=== PATIENT | female | born 1960 | race Caucasian/White ===

== ENCOUNTER 2021-01-09 13:30 | Emergency (ER) | payer MEDICARE, OTHER ==
--- OUTSIDE RECORDS SUMMARY | 2021-01-09 13:35 | XMS REPORT | Continuity of Care Document ---
:1960 Author Organization [facility] t Address [address] [place] [address] Care Team Providers Name Role Phone Unavailable Unavailable Unavailable Problems Condition Condition Condition Status Onset Resolution Last Treating Co mments Source Name Details Category Date Date Treatment Clinician Date Neuropathy Neuropathy [facility] Ecchymosis Ecchymosis Problem [facility] Urinary Urinary Problem Active [place] tract Tract da infectious Infectious [facility] disease Disease [facility] Chronic Chronic Problem Active [place] low back Low Back da pain Pain [facility] Sciatica Sciatica Problem [facility] [place] [facility] Shoulder Shoulder Problem Active [facility] tendinitis Tendinitis [facility] Pain in Pain in Problem Active [place] upper limb Upper Limb [facility] Pain in Pain in Problem Active [place] left lower Left Lower da limb Limb [facility] Costal Costal Problem Active [facility] chondritis Chondritis [facility] Chest pain Chest Pain Problem [facility] Fracture Fracture Problem Active [place] of foot of Foot [facility] Closed Closed Problem Active [place] traumatic Traumatic da dislocatio Dislocatio [facility] n of n of al tarsometat Tarsometat He alth arsal arsal Outreac joint Joint h Program Strain of Strain of Problem Active [place] tendon of Tendon of da foot and Foot and [facility] ankle Ankle al [facility] Allergies, Adverse Reactions, Alerts Allergy Allergy Status Severity Reaction(s) Onset Inactive Treating Comm ents Source Name Type Date Date Clinician PENICILL Allergy Active Moderate Other [place] INS to to severe da substanc Medical e Group Social History Smoking Status Start Date Stop Date Source Heavy Tobacco Smoker [facility] Light Tobacco Smoker [facility] Medications Ordered Filled Start Stop Current Ordering Indication Dosage Frequency Signature Comments Components Source Medication Medication Date Date Medication? Clinician (SIG) Name Name hydroco/apa hydroco/apa No hydroco/ap [place] tab p tab ap tab da 10-325mg 3 10-325mg 3 10-325mg 3 Medical times a day times a day times a Group day diclofenac diclofenac No diclofenac [place] sodium 1 % sodium 1 % sodium 1 da gel gel % gel [facility] hydrocodone hydrocodone No hydrocodon [place] 10 10 e 10 da mg-acetamin mg-acetamin mg-acetami [facility] ophen 325 ophen 325 nophen 325 al mg tablet mg tablet mg tablet Health TAKE ONE TAKE ONE TAKE ONE Out reac (1) (1) (1) h TABLET(S) TABLET(S) TABLET(S) Program BY MOUTH BY MOUTH BY MOUTH THREE TIMES THREE TIMES THREE A DAY. A DAY. TIMES A DAY. methocarbam methocarbam No methocarba [place] 750 mg ol 750 mg mol 750 mg da tablet TAKE tablet TAKE tablet [facility] ONE (1) ONE (1) TAKE ONE al TABLET(S) TABLET(S) (1) Healt h BY MOUTH BY MOUTH TABLET(S) Ou treac THREE TIMES THREE TIMES BY MOUTH h A DAY. A DAY. THREE Program TIMES A DAY. methocarbam methocarbam No methocarba [place] 750 mg ol 750 mg mol 750 da tabs 3 tabs 3 mg tabs 3 Medica l times a day times a day times a Group day Vital Signs Vital Name Observation Time Observation Value Comments Source Height 2020-03-09 00:00:00 63 [in_i] [facility] BP Diastolic 2020-03-02 00:00:00 68 mm[Hg] [facility] Height 2020-03-02 00:00:00 63 [in_i] [facility] BMI (Body Mass 2020-03-02 00:00:00 25 kg/m2 [facility] search advertising strategist [facility] Index) [facility] BP Systolic 2020-03-02 00:00:00 98 mm[Hg] [facility] Body Weight 2020-03-02 00:00:00 2256 [oz_av] [facility] BMI (Body Mass 2020-02-11 00:00:00 25.3 kg/m2 [facility] advertising strategist Medical Index) Group BP Systolic 2020-02-11 00:00:00 130 mm[Hg] [facility] Body Weight 2020-02-11 00:00:00 142.8 [lb_av] [facility] BP Diastolic 2020-02-11 00:00:00 70 mm[Hg] [facility] Height 2020-02-11 00:00:00 63 [in_i] [facility] Height 2020-02-10 00:00:00 63 [in_i] [facility] BP Diastolic 2019-12-10 00:00:00 59 mm[Hg] [facility] Height 2019-12-10 00:00:00 63 [in_i] [facility] [facility] BMI (Body Mass 2019-12-10 00:00:00 25 kg/m2 [facility] advertising strategist [facility] Index) [facility] BP Systolic 2019-12-10 00:00:00 160 mm[Hg] [facility] Body Weight 2019-12-10 00:00:00 141 [lb_av] [facility] BP Diastolic 2019-12-09 00:00:00 70 mm[Hg] [facility] Height 2019-12-09 00:00:00 63 [in_i] [facility] BMI (Body Mass 2019-12-09 00:00:00 24.9 kg/m2 [facility] advertising strategist [facility]ism Index) [facility] BP Systolic 2019-12-09 00:00:00 128 mm[Hg] [facility] Body Weight 2019-12-09 00:00:00 140.4 [lb_av] [facility] BP Diastolic 2019-11-18 00:00:00 76 mm[Hg] [facility] Height 2019-11-18 00:00:00 63 [in_i] [facility] BMI (Body Mass 2019-11-18 00:00:00 24.8 kg/m2 [facility] advertising strategist Conf[facility]ianism Index) [facility] BP Systolic 2019-11-18 00:00:00 132 mm[Hg] [facility] Body Weight 2019-11-18 00:00:00 139.8 [lb_av] [facility] Procedures Procedure Date / Time Performing Clinician Source Performed MAMMO, screening, 2020-03-02 00:00:00 [place] [facility] digital, bilateral [facility] ELECTROCARDIOGRAM, 2020-03-02 00:00:00 [place] [facility] COMPLETE [facility] Leg Surgery Procedure [facility] Appendectomy [facility] Tubal Ligation [facility] Encounters Start End Encounter Admission Attending Care Care Encounter Source Date/Time Date/Time Type Type Clinicians Facility Department ID 2020-03-09 2020-03-09 Donna CARDONA [place] - [id number] [place] [facility] 00:00:00 00:00:00 Yadiel Irving MD: [id number] [facility] - [address], [place], [place] Outreac [address] h , Ph. Program 2020-03-02 2020-03-02 Donna CARDONA [place] - [id number] M [facility] 00:00:00 00:00:00 Yadiel Irving MD: [address] [facility] [place] [facility] [address], [place], [place] Outre [address] h , Ph. Program 2020-02-11 2020-02-11 [facility] [place] - [id number] M at[facility] 00:00:00 00:00:00 Brennen Block MD: Medical Med[facility] [address], [place] [address] , Ph. [phone] 2020-02-10 2020-02-10 Donna MEHOP [place] - [id number] M [facility] 00:00:00 00:00:00 Yadiel Irving MD: [address] [facility] - [address], [place], [place] Outre [address] h , Ph. 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 [phone] , Ph. 2019-12-09 2019-12-09 Donna [facility] - [id number] M [facility] 00:00:00 00:00:00 Yadiel Irving MD: 17[address] [facility] - [address], [place], [place] Outre [address] h , Ph. Program 2019-11-18 2019-11-[id number]:00:00 00:00:00 Yadiel Irving MD: 17[address] Conf[facility] - [address], [place], [place] Outre [address] h , Ph. Program Results Test Description Test Time Test Comments Results Result Comments Source Free T4 and TSH panel - Serum or Plasma 2020-03-04 00:00:00 Test Item Value Reference Range Interpretation Comme nts Thyrotropin [Units/volume] in Serum or Plasma by 1.010 uIU/mL 0.450 -4.500 Detection limit <= 0.005 mIU/L (test code = 49515-3) Thyroxine (T4) free [Mass/volume] in Serum or Plasma 0.95 NG/dL 0 .82-1.77 (test code = 3024-7) [facility] - Serum or Plasma 2020-03-04 00:00:00 Test Item Value Reference Range Interpretation Comments Cholesterol [Mass/volume] in Serum 199 mg/dL 100-199 or Plasma (test code = 2093-3) Triglyceride [Mass/volume] in Serum 148 mg/dL 0-149 or Plasma (test code = 2571-8) Cholesterol in HDL [Mass/volume] in 42 mg/dL >39 Serum or Plasma (test code = 2085-9) Cholesterol in VLDL [Mass/volume] 30 mg/dL 5-40 in Serum or Plasma by calculation (test code = 36512-8) Cholesterol in LDL [Mass/volume] in 127 mg/dL 0-99 H Serum or Plasma by calculation (test code = 41026-8) Laboratory comment [Text] in Report occupational health physiotherapist Narrative (test code = 05943-1) [facility] A[facility]/Hemoglobin.total in [id number] 00:00:00 Test Item Value Reference Range Interpretation Comments Hemoglobin A1c/Hemoglobin.total in 6.3 % 4.8-5.6 H Blood (test code = 4548-4) Glucose mean value [Mass/volume] in 134 mg/dL Blood Estimated from glycated hemoglobin (test code = 70252-5) [facility]-Hydroxyvitamin D2+25- Hydroxyvitamin D3 [Mass/volume] in Serum or [id number] 00:00:00 Test Item Value Reference Range Interpretation Comments 25-Hydroxyvitamin 13.0 NG/mL 30.0-100.0 L D2+25-Hydroxyvitamin D3 [Mass/volume] in Serum or Plasma (test code = 74429-1) [facility] panel, [id number] 00:00:00 Test Item Value Reference Range Interpretation Comments interpretation (test code = note interpretation) pdf (test code = pdf) . [facility] T[facility] and TSH panel - Serum or [id number] 00:00:00 Test Item Value Reference Range Interpretation Comments Thyrotropin [Units/volume] in 1.010 uIU/mL 0.450-4.500 Serum or Plasma by Detection limit <= 0.005 mIU/L (test code = 47569-2) Thyroxine (T4) free 0.95 NG/dL 0.82-1.77 [Mass/volume] in Serum or Plasma (test code = 3024-7) [facility] panel - Serum or Plasma 2020-03-04 00:00:00 Test Item Value Reference Range Interpretation Comments Cholesterol [Mass/volume] in Serum 199 mg/dL 100-199 or Plasma (test code = 2093-3) Triglyceride [Mass/volume] in Serum 148 mg/dL 0-149 or Plasma (test code = 2571-8) Cholesterol in HDL [Mass/volume] in 42 mg/dL >39 Serum or Plasma (test code = 2085-9) Cholesterol in VLDL [Mass/volume] 30 mg/dL 5-40 in Serum or Plasma by calculation (test code = 74515-3) Cholesterol in LDL [Mass/volume] in 127 mg/dL 0-99 H Serum or Plasma by calculation (test code = 19111-3) Laboratory comment [Text] in Report occupational health physiotherapist Narrative (test code = 42547-2) [facility] A1c/Hemoglobin.total in [id number] 00:00:00 Test Item Value Reference Range Interpretation Comments Hemoglobin A1c/Hemoglobin.total in 6.3 % 4.8-5.6 H Blood (test code = 4548-4) Glucose mean value [Mass/volume] in 134 mg/dL Blood Estimated from glycated hemoglobin (test code = 04433-3) [facility]-Hydroxyvitamin D2+25- Hydroxyvitamin D3 [Mass/volume] in Serum or [id number] 00:00:00 Test Item Value Reference Range Interpretation Comments 25-Hydroxyvitamin 13.0 NG/mL 30.0-100.0 L D2+25-Hydroxyvitamin D3 [Mass/volume] in Serum or Plasma (test code = 79561-5) [facility] panel, [id number] 00:00:00 Test Item Value Reference Range Interpretation Comments interpretation (test code = note interpretation) pdf (test code = pdf) . [facility] T[facility] and TSH panel - Serum or [id number] 00:00:00 Test Item Value Reference Range Interpretation Comments Thyrotropin [Units/volume] in 1.180 uIU/mL 0.450-4.500 Serum or Plasma by Detection limit <= 0.005 mIU/L (test code = 41264-4) Thyroxine (T4) free 0.76 NG/dL 0.82-1.77 L [Mass/volume] in Serum or Plasma (test code = 3024-7) [facility] Auto Differential panel - Blood 2019-12-09 00:00:00 Test Item Value Reference Range Interpretation Comments Leukocytes [#/volume] in Blood 7.8 x10e3/uL 3.4-10.8 by Automated count (test code = 6690-2) Erythrocytes [#/volume] in 4.40 x10e6/uL 3.77-5.28 Blood by Automated count (test code = 789-8) Hemoglobin [Mass/volume] in 14.1 g/dL 11.1-15.9 Blood (test code = 718-7) Hematocrit [Volume Fraction] of 43.7 % 34.0-46.6 Blood by Automated count (test code = 4544-3) Erythrocyte mean corpuscular 99 fL 79-97 H volume [Entitic volume] by Automated count (test code = 787-2) Erythrocyte mean corpuscular 32.0 pg 26.6-33.0 hemoglobin [Entitic mass] by Automated count (test code = 785-6) Erythrocyte mean corpuscular 32.3 g/dL 31.5-35.7 hemoglobin concentration [Mass/volume] by Automated count (test code = 786-4) Erythrocyte distribution width 12.6 % 11.7-15.4 [Ratio] by Automated count (test code = 788-0) Platelets [#/volume] in Blood 324 x10e3/uL 150-450 by Automated count (test code = 777-3) Neutrophils/100 leukocytes in 65 % not estab. Blood by Automated count (test code = 770-8) Lymphocytes/100 leukocytes in 26 % not estab. Blood by Automated count (test code = 736-9) Monocytes/100 leukocytes in 7 % not estab. Blood by Automated count (test code = 5905-5) Eosinophils/100 leukocytes in 2 % not estab. Blood by Automated count (test code = 713-8) Basophils/100 leukocytes in 0 % not estab. Blood by Automated count (test code = 706-2) immature cells (test code = occupational health physiotherapist immature cells) Neutrophils [#/volume] in Blood 4.9 x10e3/uL 1.4-7.0 by Automated count (test code = 751-8) Lymphocytes [#/volume] in Blood 2.1 x10e3/uL 0.7-3.1 by Automated count (test code = 731-0) Monocytes [#/volume] in Blood 0.6 x10e3/uL 0.1-0.9 by Automated count (test code = 742-7) Eosinophils [#/volume] in Blood 0.2 x10e3/uL 0.0-0.4 by Automated count (test code = 711-2) Basophils [#/volume] in Blood 0.0 x10e3/uL 0.0-0.2 by Automated count (test code = 704-7) Immature granulocytes/100 0 % not estab. leukocytes in Blood by Automated count (test code = 42235-6) Immature granulocytes 0.0 x10e3/uL 0.0-0.1 [#/volume] in Blood by Automated count (test code = 57548-9) Nucleated erythrocytes/100 occupational health physiotherapist leukocytes [Ratio] in Blood by Automated count (test code = 44330-5) Morphology [Interpretation] in occupational health physiotherapist Blood Narrative (test code = 10812-8) [facility] metabolic 2000 panel - Serum or [id number] 00:00:00 Test Item Value Reference Range Interpretation Comments Glucose [Mass/volume] in Serum 97 mg/dL 65-99 or Plasma (test code = 2345-7) Urea nitrogen [Mass/volume] in 15 mg/dL 6-24 Serum or Plasma (test code = 3094-0) Creatinine [Mass/volume] in 0.77 mg/dL 0.57-1.00 Serum or Plasma (test code = 2160-0) Glomerular filtration 85 mL/min/1.73 >59 rate/1.73 sq M.predicted among non-blacks [Volume Rate/Area] in Serum, Plasma or Blood by Creatinine-based formula (CKD-EPI) (test code = 94695-7) Glomerular filtration 98 mL/min/1.73 >59 rate/1.73 sq M.predicted among blacks [Volume Rate/Area] in Serum, Plasma or Blood by Creatinine-based formula (CKD-EPI) (test code = 20615-2) Urea nitrogen/Creatinine [Mass 19 9-23 Ratio] in Serum or Plasma (test code = 3097-3) Sodium [Moles/volume] in Serum 141 mmol/L 134-144 or Plasma (test code = 2951-2) Potassium [Moles/volume] in 4.9 mmol/L 3.5-5.2 Serum or Plasma (test code = 2823-3) Chloride [Moles/volume] in 103 mmol/L 96-106 Serum or Plasma (test code = 2074-0) Carbon dioxide, total 25 mmol/L 20-29 [Moles/volume] in Serum or Plasma (test code = 2027-) Calcium [Mass/volume] in Serum 10.0 mg/dL 8.7-10.2 or Plasma (test code = 45176-3) Protein [Mass/volume] in Serum 6.8 g/dL 6.0-8.5 or Plasma (test code = 2885-2) Albumin [Mass/volume] in Serum 4.8 g/dL 3.8-4.9 or Plasma (test code = 175-7) Globulin [Mass/volume] in 2.0 g/dL 1.5-4.5 Serum by calculation (test code = 61660-1) Albumin/Globulin [Mass Ratio] 2.4 1.2-2.2 H in Serum or Plasma (test code = 1759-0) Bilirubin.total [Mass/volume] 0.3 mg/dL 0.0-1.2 in Serum or Plasma (test code = 1974-2) Alkaline phosphatase 92 IU/L 39-117 [Enzymatic activity/volume] in Serum or Plasma (test code = 6768-6) Aspartate aminotransferase 15 IU/L 0-40 [Enzymatic activity/volume] in Serum or Plasma (test code = 1920-8) Alanine aminotransferase 14 IU/L 0-32 [Enzymatic activity/volume] in Serum or Plasma (test code = 1742-6) [facility], [id number] 00:00:00 Test Item Value Reference Range Interpretation Comments Cholesterol [Mass/volume] in Serum 226 mg/dL 100-199 H or Plasma (test code = 2093-3) Triglyceride [Mass/volume] in Serum 177 mg/dL 0-149 H or Plasma (test code = 2571-8) Cholesterol in HDL [Mass/volume] in 43 mg/dL >39 Serum or Plasma (test code = 2085-9) Cholesterol in VLDL [Mass/volume] 35 mg/dL 5-40 in Serum or Plasma by calculation (test code = 30239-7) Cholesterol in LDL [Mass/volume] in 148 mg/dL 0-99 H Serum or Plasma by calculation (test code = 16244-9) Laboratory comment [Text] in Report occupational health physiotherapist Narrative (test code = 02013-2) Cholesterol.total/Cholesterol.in 5.3 ratio 0.0-4.4 H HDL [Mass ratio] in Serum or Plasma (test code = 9830-1) Cholesterol in LDL/Cholesterol in 3.4 ratio 0.0-3.2 H HDL [Mass Ratio] in Serum or Plasma (test code = 59533-5) [facility] A1c/Hemoglobin.total in [id number] 00:00:00 Test Item Value Reference Range Interpretation Comments Hemoglobin A1c/Hemoglobin.total in 6.2 % 4.8-5.6 H Blood (test code = 4548-4) [facility], [id number] 00:00:00 Test Item Value Reference Range Interpretation Comments interpretation (test code = note interpretation) pdf image (test code = pdf image) . [facility] T4 and TSH panel - Serum or [id number] 00:00:00 Test Item Value Reference Range Interpretation Comments Thyrotropin [Units/volume] in 1.180 uIU/mL 0.450-4.500 Serum or Plasma by Detection limit <= 0.005 mIU/L (test code = 83301-5) Thyroxine (T4) free 0.76 NG/dL 0.82-1.77 L [Mass/volume] in Serum or Plasma (test code = 3024-7) [facility] W Auto Differential panel - Blood 2019-12-09 00:00:00 Test Item Value Reference Range Interpretation Comments Leukocytes [#/volume] in Blood 7.8 x10e3/uL 3.4-10.8 by Automated count (test code = 6690-2) Erythrocytes [#/volume] in 4.40 x10e6/uL 3.77-5.28 Blood by Automated count (test code = 789-8) Hemoglobin [Mass/volume] in 14.1 g/dL 11.1-15.9 Blood (test code = 718-7) Hematocrit [Volume Fraction] of 43.7 % 34.0-46.6 Blood by Automated count (test code = 4544-3) Erythrocyte mean corpuscular 99 fL 79-97 H volume [Entitic volume] by Automated count (test code = 787-2) Erythrocyte mean corpuscular 32.0 pg 26.6-33.0 hemoglobin [Entitic mass] by Automated count (test code = 785-6) Erythrocyte mean corpuscular 32.3 g/dL 31.5-35.7 hemoglobin concentration [Mass/volume] by Automated count (test code = 786-4) Erythrocyte distribution width 12.6 % 11.7-15.4 [Ratio] by Automated count (test code = 788-0) Platelets [#/volume] in Blood 324 x10e3/uL 150-450 by Automated count (test code = 777-3) Neutrophils/100 leukocytes in 65 % not estab. Blood by Automated count (test code = 770-8) Lymphocytes/100 leukocytes in 26 % not estab. Blood by Automated count (test code = 736-9) Monocytes/100 leukocytes in 7 % not estab. Blood by Automated count (test code = 5905-5) Eosinophils/100 leukocytes in 2 % not estab. Blood by Automated count (test code = 713-8) Basophils/100 leukocytes in 0 % not estab. Blood by Automated count (test code = 706-2) immature cells (test code = occupational health physiotherapist immature cells) Neutrophils [#/volume] in Blood 4.9 x10e3/uL 1.4-7.0 by Automated count (test code = 751-8) Lymphocytes [#/volume] in Blood 2.1 x10e3/uL 0.7-3.1 by Automated count (test code = 731-0) Monocytes [#/volume] in Blood 0.6 x10e3/uL 0.1-0.9 by Automated count (test code = 742-7) Eosinophils [#/volume] in Blood 0.2 x10e3/uL 0.0-0.4 by Automated count (test code = 711-2) Basophils [#/volume] in Blood 0.0 x10e3/uL 0.0-0.2 by Automated count (test code = 704-7) Immature granulocytes/100 0 % not estab. leukocytes in Blood by Automated count (test code = 95274-4) Immature granulocytes 0.0 x10e3/uL 0.0-0.1 [#/volume] in Blood by Automated count (test code = 58599-0) Nucleated erythrocytes/100 occupational health physiotherapist leukocytes [Ratio] in Blood by Automated count (test code = 61497-7) Morphology [Interpretation] in occupational health physiotherapist Blood Narrative (test code = 98182-9) [facility]Com[facility] 2000 panel - Serum or [id number] 00:00:00 Test Item Value Reference Range Interpretation Comments Glucose [Mass/volume] in Serum 97 mg/dL 65-99 or Plasma (test code = 2345-7) Urea nitrogen [Mass/volume] in 15 mg/dL 6-24 Serum or Plasma (test code = 3094-0) Creatinine [Mass/volume] in 0.77 mg/dL 0.57-1.00 Serum or Plasma (test code = 2160-0) Glomerular filtration 85 mL/min/1.73 >59 rate/1.73 sq M.predicted among non-blacks [Volume Rate/Area] in Serum, Plasma or Blood by Creatinine-based formula (CKD-EPI) (test code = 82043-3) Glomerular filtration 98 mL/min/1.73 >59 rate/1.73 sq M.predicted among blacks [Volume Rate/Area] in Serum, Plasma or Blood by Creatinine-based formula (CKD-EPI) (test code = 76761-0) Urea nitrogen/Creatinine [Mass 19 9-23 Ratio] in Serum or Plasma (test code = 3097-3) Sodium [Moles/volume] in Serum 141 mmol/L 134-144 or Plasma (test code = 2951-2) Potassium [Moles/volume] in 4.9 mmol/L 3.5-5.2 Serum or Plasma (test code = 2823-3) Chloride [Moles/volume] in 103 mmol/L 96-106 Serum or Plasma (test code = 2075-0) Carbon dioxide, total 25 mmol/L 20-29 [Moles/volume] in Serum or Plasma (test code = 2027-9) Calcium [Mass/volume] in Serum 10.0 mg/dL 8.7-10.2 or Plasma (test code = 32770-7) Protein [Mass/volume] in Serum 6.8 g/dL 6.0-8.5 or Plasma (test code = 2885-2) Albumin [Mass/volume] in Serum 4.8 g/dL 3.8-4.9 or Plasma (test code = 1751-7) Globulin [Mass/volume] in 2.0 g/dL 1.5-4.5 Serum by calculation (test code = 93954-7) Albumin/Globulin [Mass Ratio] 2.4 1.2-2.2 H in Serum or Plasma (test code = 1759-0) Bilirubin.total [Mass/volume] 0.3 mg/dL 0.0-1.2 in Serum or Plasma (test code = 1974-2) Alkaline phosphatase 92 IU/L 39-117 [Enzymatic activity/volume] in Serum or Plasma (test code = 6768-6) Aspartate aminotransferase 15 IU/L 0-40 [Enzymatic activity/volume] in Serum or Plasma (test code = 1920-8) Alanine aminotransferase 14 IU/L 0-32 [Enzymatic activity/volume] in Serum or Plasma (test code = 1742-6) [facility], [id number] 00:00:00 Test Item Value Reference Range Interpretation Comments Cholesterol [Mass/volume] in Serum 226 mg/dL 100-199 H or Plasma (test code = 2093-3) Triglyceride [Mass/volume] in Serum 177 mg/dL 0-149 H or Plasma (test code = 2571-8) Cholesterol in HDL [Mass/volume] in 43 mg/dL >39 Serum or Plasma (test code = 2085-9) Cholesterol in VLDL [Mass/volume] 35 mg/dL 5-40 in Serum or Plasma by calculation (test code = 80480-5) Cholesterol in LDL [Mass/volume] in 148 mg/dL 0-99 H Serum or Plasma by calculation (test code = 49823-5) Laboratory comment [Text] in Report occupational health physiotherapist Narrative (test code = 44840-7) Cholesterol.total/Cholesterol.in 5.3 ratio 0.0-4.4 H HDL [Mass ratio] in Serum or Plasma (test code = 9830-1) Cholesterol in LDL/Cholesterol in 3.4 ratio 0.0-3.2 H HDL [Mass Ratio] in Serum or Plasma (test code = 98977-2) [facility]Hemoglobin.total in [id number] 00:00:00 Test Item Value Reference Range Interpretation Comments Hemoglobin A1c/Hemoglobin.total in 6.2 % 4.8-5.6 H Blood (test code = 4548-4) [facility], [id number] 00:00:00 Test Item Value Reference Range Interpretation Comments interpretation (test code = note interpretation) pdf image (test code = pdf image) . [facility], [id number] 11:54:00 Test Item Value Reference Range Interpretation Comments Occult Blood (test code = Occult negative Blood) [facility], [id number] 11:54:00 Test Item Value Reference Range Interpretation Comments Occult Blood (test code = Occult negative Blood) [facility]
[2021-01-09] MEDS ORDERED: ACETAMINOPHEN 500 MG TAB ONE (15:44)
[2021-01-09] MEDS ORDERED: ONDANSETRON 4 MG (ODT) TAB ONE (15:44)
[2021-01-09] MEDS ORDERED: IBUPROFEN 200 MG TAB PO ONE (15:50)
[2021-01-09 17:48] LABS: SARS-COV-2 RT PCR NEGATIVE (NEGATIVE)
--- NOTE | 2021-01-09 18:42 | ER ---
Nurse's Notes [facility] Name: Radha Hager Age: 60 yrs Sex: Female : 1960 Arrival Date: 01/09/2021 Time: 13:33 Bed 17 [facility] MD: Diagnosis: Acute upper respiratory infection, unspecified;Diarrhea, unspecified;Nausea Presentation: 01/09 14:38 Chief complaint: Patient states: woke up with body aches, stomach aches, weakness and em diarrhea, denies pain. Coronavirus screen: Client denies travel out of the [place] in the last 14 days. Ebola Screen: Patient negative for fever greater than or equal to 101.5 degrees Fahrenheit, and additional compatible Ebola Virus Disease symptoms Patient denies exposure to infectious person. Patient denies travel to an Ebola-affected area in the 21 days before illness onset. No symptoms or risks identified at this time. No acute neurological deficit is noted. Pre-hospital glucose is not applicable to this patient. Initial Sepsis Screen: Does the patient meet any 2 criteria? HR > 90 bpm. Does the patient have a suspected source of infection? No. Patient's initial sepsis screen is negative. Risk Assessment: Do you want to hurt yourself or someone else? Patient reports no desire to harm self or others. Onset of symptoms was January 09, 2021. 14:38 Method Of Arrival: Ambulatory em 14:38 Acuity: ROLO 4 em Historical: - Allergies: 14:41 PENICILLINS; em - PMHx: 14:41 None; em - PSHx: 14:41 Tubal ligation; Appendectomy; em - Immunization history:: Adult Immunizations up to date. - Social history:: Smoking status: Patient reports the use of cigarette tobacco products, smokes one pack cigarettes per day. Screenin:16 Abuse screen: Denies threats or abuse. Nutritional screening: No deficits noted. vg1 Tuberculosis screening: No symptoms or risk factors identified. Fall Risk No fall in past 12 months (0 pts). No secondary diagnosis (0 pts). No IV (0 pts). Ambulatory Aid- None/Bed Rest/Nurse Assist (0 pts). Gait- Normal/Bed Rest/Wheelchair (0 pts) Mental Status- Oriented to own ability (0 pts). Total Tate Fall Scale indicates No Risk (0-24 pts). Assessment: 15:13 General: Appears in no apparent distress. comfortable, Behavior is calm, cooperative. vg1 Pain: Denies pain. Neuro: Level of Consciousness is awake, alert, obeys commands, Oriented to person, place, time, situation. Cardiovascular: Patient's skin is warm and dry. Respiratory: Reports cough that is Airway is patent Respiratory effort is even, unlabored, Respiratory pattern is regular, symmetrical. GI: Reports nausea. : No signs and/or symptoms were reported regarding the genitourinary system. EENT: Reports nasal discharge. Derm: Skin is intact, Skin is pink, warm \T\ dry. Musculoskeletal: Circulation, motion, and sensation intact. 15:23 Reassessment: Received VO from MINA Mohamud to administer Zofran 4 mg PO x1 and Tylenol vg1 1g PO x1. 18:41 Reassessment: Patient appears in no apparent distress at this time. Patient and/or vg1 family updated on plan of care and expected duration. Pain level reassessed. Patient is alert, oriented x 3, equal unlabored respirations, skin warm/dry/pink. Vital Signs: 14:38 BP 143 / 76; Pulse 91; Resp 18; Temp 97.4(O); Pulse Ox 99% on R/A; Weight 56.25 kg; em Height 5 ft. 3 in. (160.02 cm); Pain 0/10; 15:15 BP 127 / 68; Pulse 80; Resp 20; Pulse Ox 100% on R/A; vg1 16:23 BP 120 / 70; Pulse 87; Resp 16; Pulse Ox 100% on R/A; vg1 17:00 BP 124 / 70; Pulse 84; Resp 16; Pulse Ox 100% ; vg1 18:00 BP 131 / 60; Pulse 67; Resp 14; Pulse Ox 100% on R/A; vg1 14:38 Body Mass Index 21.97 (56.25 kg, 160.02 cm) em ED Course: 13:33 Patient arrived in ED. ds1 14:40 Triage completed. em 14:41 Arm band placed on. em 15:02 Ariela Jiang, JB is Primary Nurse. vg1 15:02 Ric Mohamud NP is PHCP. pm1 15:02 Boy Baumann MD is Attending Physician. pm1 15:16 Patient has correct armband on for positive identification. Bed in low position. Call vg1 light in reach. Side rails up X 1. 15:47 COVID swab sent to lab. Flu and/or RSV swab sent to lab. Strep swab sent to lab. vg1 18:59 No provider procedures requiring assistance completed. Patient did not have IV access vg1 during this emergency room visit. Administered Medications: 15:29 Not Given (Physician Discretion): Tylenol 1000 mg PO once pm1 15:37 Drug: Zofran (Ondansetron) 4 mg Route: PO; vg1 18:41 Follow up: Response: No adverse reaction; Nausea is decreased vg1 15:46 Drug: Ibuprofen 600 mg Route: PO; vg1 18:41 Follow up: Response: No adverse reaction; Pain is decreased vg1 Outcome: 18:41 Discharge ordered by MD. pm1 19:00 Discharged to home ambulatory. vg1 19:00 Condition: stable 19:00 Discharge instructions given to patient, Instructed on discharge instructions, follow up and referral plans. medication usage, Demonstrated understanding of instructions, follow-up care, medications, Prescriptions given X 1. 19:00 Patient left the ED. vg1 Signatures: Gabriel Foy, RN RN Duyen Loja ds1 Ric Mohamud, MINA MINE INSPECTOR FEDERAL pm1 Ariela Jiang, RN RN vg1 Corrections: (The following items were deleted from the chart) 15:47 15:47 EKG done, COVID swab sent to lab. Flu and/or RSV swab sent to lab. vg1 vg1
--- NOTE | 2021-01-09 19:01 | EDPHYS ---
Physician Documentation [facility] Name: Radha Hager Age: 60 yrs Sex: Female : 1960 Arrival Date: 01/09/2021 Time: 13:33 Bed 17 Private MD: ED Physician Boy Baumann HPI: 01/09 15:30 This 60 yrs old Female presents to ER via Ambulatory with complaints of pm1 Weakness, Body Aches. 15:30 The patient or guardian reports cough, runny nose. Onset: The symptoms/episode pm1 began/occurred this morning. Severity of symptoms: in the emergency department the symptoms are actually worse. Modifying factors: The symptoms are alleviated by Tylenol. Associated signs and symptoms: Pertinent positives: generalized weakness, body aches, nausea, diarrhea x 3 today, Pertinent negatives: chest pain, ear ache, fever, sore throat, shortness of breath. The patient has not experienced similar symptoms in the past. The patient has not recently seen a physician. Historical: - Allergies: 14:41 PENICILLINS; em - PMHx: 14:41 None; em - PSHx: 14:41 Tubal ligation; Appendectomy; em - Immunization history:: Adult Immunizations up to date. - Social history:: Smoking status: Patient reports the use of cigarette tobacco products, smokes one pack cigarettes per day. ROS: 15:30 Cardiovascular: Negative for chest pain, palpitations, and edema. pm1 15:30 Back: Negative for injury and pain, : Negative for injury, bleeding, discharge, and swelling, MS/Extremity: Negative for injury and deformity, Skin: Negative for injury, rash, and discoloration. 15:30 Constitutional: Positive for body aches, Negative for fever, poor PO intake. 15:30 ENT: Positive for rhinorrhea, Negative for ear pain, sore throat. 15:30 Respiratory: Positive for cough, Negative for shortness of breath. 15:30 Abdomen/GI: Positive for nausea, diarrhea, Negative for abdominal pain, vomiting, constipation. 15:30 Neuro: Positive for headache, Negative for numbness, tingling. Exam: 15:30 Constitutional: This is a well developed, well nourished patient who is awake, alert, pm1 and in no acute distress. Head/Face: Normocephalic, atraumatic. 15:30 Cardiovascular: Regular rate and rhythm with a normal S1 and S2. No gallops, murmurs, or rubs. No pulse deficits. 15:30 Back: No spinal tenderness. No costovertebral tenderness. Full range of motion. Skin: Warm, dry with normal turgor. Normal color with no rashes, no lesions, and no evidence of cellulitis. MS/ Extremity: Pulses equal, no cyanosis. Neurovascular intact. Full, normal range of motion. 15:30 ENT: External ear(s): are unremarkable, Ear canal(s): are normal, TM's: are normal, Posterior pharynx: no acute changes. 15:30 Respiratory: the patient does not display signs of respiratory distress, Respirations: normal, Breath sounds: are clear throughout, no rales, rhonchi, no wheezing. 15:30 Neuro: Exam negative for acute changes, Orientation: is normal, Mentation: is normal, Motor: is normal, moves all fours, Sensation: is normal, no obvious gross deficits. Vital Signs: 14:38 BP 143 / 76; Pulse 91; Resp 18; Temp 97.4(O); Pulse Ox 99% on R/A; Weight 56.25 kg; em Height 5 ft. 3 in. (160.02 cm); Pain 0/10; 15:15 BP 127 / 68; Pulse 80; Resp 20; Pulse Ox 100% on R/A; vg1 16:23 BP 120 / 70; Pulse 87; Resp 16; Pulse Ox 100% on R/A; vg1 17:00 BP 124 / 70; Pulse 84; Resp 16; Pulse Ox 100% ; vg1 18:00 BP 131 / 60; Pulse 67; Resp 14; Pulse Ox 100% on R/A; vg1 14:38 Body Mass Index 21.97 (56.25 kg, 160.02 cm) em MDM: 15:02 Patient medically screened. pm1 15:16 Refusal of service: The patient/guardian displays adequate decision making capability pm1 and despite a detailed discussion of alternatives, benefits, risks, and consequences refuses: blood work. Patient reports history of anemia but does not want her blood work checked. She would just like swabs for flu, strep, covid. 15:16 Data reviewed: vital signs. Data interpreted: Pulse oximetry: on room air is 100 %. pm1 Interpretation: normal. 18:38 Counseling: I had a detailed discussion with the patient and/or guardian regarding: the pm1 historical points, exam findings, and any diagnostic results supporting the discharge/admit diagnosis, lab results. 18:38 Refusal of service: The patient/guardian displays adequate decision making capability pm1 and despite a detailed discussion of alternatives, benefits, risks, and consequences refuses: Patient refused additional work up. Patient feels that she just has post nasal drainage causing a cough. Offered her cough medications and she refused. 01/09 15:12 Order name: Flu pm1 01/09 15:12 Order name: Strep pm1 01/09 15:12 Order name: COVID-19 : Document "Date of Symptom Onset" if Symptomatic. pm1 01/09 15:12 Order name: Group A Streptococcus Rapid Sc; Complete Time: 17:25 EDMS 01/09 15:12 Order name: Droplet/Contact Precautions; Complete Time: 15:13 pm1 01/09 15:12 Order name: Labs collected and sent; Complete Time: 15:46 pm1 01/09 15:12 Order name: O2 Per Protocol; Complete Time: 15:13 pm1 01/09 17:19 Order name: Throat Culture EDMS 01/09 17:48 Order name: COVID-19/FLU A+B; Complete Time: 17:55 EDMS Administered Medications: 15:29 Not Given (Physician Discretion): Tylenol 1000 mg PO once pm1 15:37 Drug: Zofran (Ondansetron) 4 mg Route: PO; vg1 18:41 Follow up: Response: No adverse reaction; Nausea is decreased vg1 15:46 Drug: Ibuprofen 600 mg Route: PO; vg1 18:41 Follow up: Response: No adverse reaction; Pain is decreased vg1 Disposition: 01/09/21 18:41 Discharged to Home. Impression: Acute upper respiratory infection, unspecified, Diarrhea, unspecified, Nausea. - Condition is Stable. - Discharge Instructions: Food Choices to Help Relieve Diarrhea, Adult, Diarrhea, Adult, Nausea, Adult, Upper Respiratory Infection, Adult. - Prescriptions for Zofran ODT 4 mg Oral tablet,disintegrating - place 1 tablet by TRANSLINGUAL route every 8 hours As needed; 12 tablet. - Medication Reconciliation Form, Thank You Letter, Antibiotic Education, Prescription Opioid Use form. - Follow up: Emergency Department; When: As needed; Reason: Worsening of condition. Follow up: Private Physician; When: 2 - 3 days; Reason: Recheck today's complaints, Continuance of care, Re-evaluation by your physician. - Problem is new. - Symptoms have improved. Addendum: 01/12/2021 06:15 Co-signature as Attending Physician, Boy Baumann MD. m a2 Signatures: Dispatcher [employer] [facility] Gabriel Foy, RN RN em Ric Mohamud, WHITE MIXING OPERATOR WHITE MIXING OPERATOR pm1 Boy Baumann MD MD ma2 Ariela Jiang, RN RN vg1 Corrections: (The following items were deleted from the chart) 01/09 16:51 15:13 CORONAVIRUS ordered. [facility] 16:52 15:12 Influenza Screen (A ordered. [facility] EDAZ 19:00 18:41 01/09/2021 18:41 Discharged to Home. Impression: Acute upper respiratory vg1 infection, unspecified; Diarrhea, unspecified; Nausea. Condition is Stable. Forms are Medication Reconciliation Form, Thank You Letter, Antibiotic Education, Prescription Opioid Use. Follow up: Emergency Department; When: As needed; Reason: Worsening of condition. Follow up: Private Physician; When: 2 - 3 days; Reason: Recheck today's complaints, Continuance of care, Re-evaluation by your physician. Problem is new. Symptoms have improved. pm1
[2021-01-09 19:10] VITALS: TEMP 97.4
[2021-01-09 19:12] VITALS: O2SAT 100
[2021-01-09 19:16] VITALS: BP 131/60
== END 2021-01-09 19:00 | disposition home or self-care (01) ==
LOC: ER 13:30
DX: J06.9 Acute upper respiratory infection, unspecified (principal); R19.7 Diarrhea, unspecified; R11.0 Nausea; Z20.822 Contact with and (suspected) exposure to COVID-19; F17.210 Nicotine dependence, cigarettes, uncomplicated; Z88.0 Allergy status to penicillin
CPT/HCPCS: 87070; 87081; 0240U; 99283